=== PATIENT | female | born 1990 | race Caucasian/White ===

== ENCOUNTER 2021-12-09 13:09 | Emergency (ER) | payer OTHER ==
[~2021-12-09] VITALS: Ht 167.6 cm; Wt 68.3 kg
[2021-12-09 13:10] VITALS: BP 113/58
[2021-12-09] MEDS ORDERED: MULTTAB20 PO (13:14)
[2021-12-09 15:03] LABS: BASO % 0.3 % (0.0-1.0); EOS # 0.1 10^3/uL (0.0-0.5); EOS % 0.8 % (0.0-3.0); HEMATOCRIT 36.2 % (36.0-47.0); LYMPH # 2.9 10^3/uL (1.5-5.0); LYMPH % 25.8 % (24.0-44.0); MEAN CORPUSCULAR HGB CONC 35.9 g/dl (32.0-36.5); MEAN CORPUSCULAR VOLUME 86.4 fl (80.0-96.0); MONO # 0.6 10^3/uL (0.0-0.8); MONO % 5.3 % (2.0-8.0); NEUTROPHILS # 7.5 10^3/uL (1.5-8.5); NEUTROPHILS % 67.4 % (36.0-66.0); PLATELET COUNT, AUTOMATED 246 10^3/uL (150-450); RED BLOOD COUNT 4.19 10^6/uL (4.00-5.40); WHITE BLOOD COUNT 11.1 10^3/uL (4.0-10.0)
[2021-12-09 16:34] LABS: BLOOD UREA NITROGEN 12 MG/DL (7-18); CALCIUM LEVEL 9.5 MG/DL (8.5-10.1); CARBON DIOXIDE LEVEL 27 MEQ/L (21-32); CHLORIDE LEVEL 108 MEQ/L (98-107); CREATININE FOR GFR 0.71 MG/DL (0.55-1.30); GLOMERULAR FILTRATION RATE > 60.0 (>60); GLUCOSE, FASTING 90 MG/DL (70-100); HCG, SERUM QUANTITATIVE 3129 MIU/ML; POTASSIUM SERUM 3.7 MEQ/L (3.5-5.1); SODIUM LEVEL 140 MEQ/L (136-145)
[2021-12-09 16:41] LABS: APPEARANCE, URINE MANUAL CLEAR (CLEAR); COLOR, URINE MANUAL YELLOW (YELLOW)
[2021-12-09 16:42] LABS: BILIRUBIN, URINE MANUAL NEGATIVE (NEGATIVE); GLUCOSE, URINE (UA) MANUAL NEGATIVE (NEGATIVE); KETONE, URINE MANUAL NEGATIVE (NEGATIVE); PROTEIN, URINE MANUAL NEGATIVE (NEGATIVE); SPECIFIC GRAVITY,URINE MANUAL 1.025 (1.002-1.035); UROBILINOGEN, URINE MANUAL NORMAL (NORMAL)
[2021-12-09 16:43] LABS: BLOOD URINE MANUAL POSITIVE (NEGATIVE); LEUKOCYTE ESTERASE, URINE MAN TRACE (NEGATIVE); NITRITE, URINE MANUAL NEGATIVE (NEGATIVE)
[2021-12-09 16:58] LABS: BACTERIA, URINE SMALL AMOUNT; RBC, URINE 0-1 /hpf (0-3); SQUAMOUS EPITHELIAL CELL URINE SMALL AMOUNT /hpf (SMALL AMT); WBC, URINE 0-1 /hpf (0-3)
[2021-12-09 16:59] LABS: AMORPHOUS SEDIMENT, URINE SMALL AMOUNT (NEGATIVE)
== END 2021-12-09 18:38 | disposition home or self-care (01) ==
LOC: M ED 13:09
DX: O20.0 Threatened abortion (principal); O26.899 Other specified pregnancy related conditions, unspecified trimester; O34.80 Maternal care for other abnormalities of pelvic organs, unspecified trimester; O26.859 Spotting complicating pregnancy, unspecified trimester; Z32.01 Encounter for pregnancy test, result positive

== ENCOUNTER 2022-09-24 13:58 | Inpatient (IN) | payer OTHER ==
[~2022-09-24] VITALS: Ht 167.6 cm; Wt 82.7 kg
[~2022-09-24 13:58] MED LIST: MULTTAB20 PO
[2022-09-24 14:23] VITALS: BP 122/58
[2022-09-24] MEDS ORDERED: HOME MED LIST COMPLETE! XX SCH (14:40)
[2022-09-24 14:51] VITALS: BP 125/55
[2022-09-24] MEDS ORDERED: DIBUCAINE 1% OINTMENT 30GM TOP PRN (15:15)
[2022-09-24] MEDS ORDERED: ACETAMINOPHEN TAB 650MG DOSE (2X325MG) PO PRN (15:15)
[2022-09-24] MEDS ORDERED: ACETAMINOPHEN 500 MG TAB PO PRN (15:15)
[2022-09-24] MEDS ORDERED: METHYLERGONOVINE MALEATE 0.2 MG TAB PO PRN (15:15)
[2022-09-24] MEDS ORDERED: DOCUSATE SODIUM 100MG CAPSULE PO PRN (15:15)
[2022-09-24] MEDS ORDERED: IBUPROFEN 600MG TAB PO PRN (15:15)
[2022-09-24] MEDS ORDERED: IBUPROFEN 800 MG TAB PO PRN (15:15)
[2022-09-24 16:24] LABS: HEMATOCRIT 33.3 % (36.0-47.0); HEMOGLOBIN 11.6 g/dl (12.0-15.5); MEAN CORPUSCULAR HEMOGLOBIN 31.9 pg (27.0-33.0); MEAN CORPUSCULAR HGB CONC 34.8 g/dl (32.0-36.5); MEAN CORPUSCULAR VOLUME 91.5 fl (80.0-96.0); PLATELET COUNT, AUTOMATED 188 10^3/uL (150-450); RED BLOOD COUNT 3.64 10^6/uL (4.00-5.40); WHITE BLOOD COUNT 17.2 10^3/uL (4.0-10.0)
[2022-09-24 17:10] VITALS: BP 112/59; O2SAT 97
[2022-09-24 17:56] VITALS: BP 108/54; O2SAT 100
[2022-09-25 06:18] VITALS: BP 99/53; O2SAT 97
[2022-09-25] MEDS ORDERED: PRENATAL VITAMINS CHEWABLE TABLET PO SCH (09:00)
[2022-09-25 17:50] VITALS: BP 111/55; O2SAT 98
[2022-09-26] MEDS ORDERED: MEASLES,MUMPS,RUBELLA VACCINE INJ (MMR-II) SC.IMMUN ONE (09:00)
== END 2022-09-25 21:26 | disposition home or self-care (01) | DRG 807 ==
LOC: M LDI 13:58 → M OBS 17:00
PROVIDERS: ADMIT Advanced Practice Midwife; ATTEND Advanced Practice Midwife
PROC: 10E0XZZ Delivery of Products of Conception, External Approach (ICD-10-PCS; principal; 2022-09-24)
DX: O76 Abnormality in fetal heart rate and rhythm complicating labor and delivery (principal); Z37.0 Single live birth; O77.0 Labor and delivery complicated by meconium in amniotic fluid; Z3A.40 40 weeks gestation of pregnancy; O69.1XX0 Labor and delivery complicated by cord around neck, with compression, not applicable or unspecified